=== PATIENT | male | born 1945 | race Caucasian/White ===

== ENCOUNTER 2022-12-09 06:04 | Day surgery (SDC) | payer OTHER ==
[2022-12-05 10:29] VITALS: BMI 25.8
[2022-12-09] MEDS ORDERED: ceFAZolin SODIUM 1 GM VIAL ONE ×2 (07:03→08:27)
[2022-12-09] MEDS ORDERED: VANCOMYCIN 1,000 MG VIAL (RESTRICTED TO ID ONLY) ONE (07:03)
[2022-12-09] MEDS ORDERED: ONDANSETRON 4 MG/2 ML VIAL ONE (07:08)
[2022-12-09] MEDS ORDERED: DEXAMETHASONE SOD PHOSPHATE 4 MG/1 ML VIAL ONE (07:08)
[2022-12-09] MEDS ORDERED: MIDAZOLAM HCL 2 MG/2 ML SINGLE DOSE VIAL ONE (07:08)
[2022-12-09] MEDS ORDERED: FENTANYL CITRATE/PF 50 MCG/ML VIAL ONE (07:09)
[2022-12-09] MEDS ORDERED: ROPIVACAINE HCL 0.5% 30ML VIAL ONE (07:09)
[2022-12-09] MEDS ORDERED: CEFAZOLIN 2 GM in DEXTROSE 5%-WATER - 50 ML IVPB ONE (08:00)
[2022-12-09] MEDS ORDERED: TRANEXAMIC ACID 1000 MG/10 ML VIAL IVPUSH ONE (09:00)
[2022-12-09] MEDS ORDERED: TRANEXAMIC ACID 1000 MG/10 ML VIAL ONE (09:33)
[2022-12-09] MEDS ORDERED: MAG HYDROX/AL HYDROX/SIMETH 30 ML UNIT-DOSE CUP PO PRN (09:41)
[2022-12-09] MEDS ORDERED: ONDANSETRON 4 MG/2 ML VIAL IVPUSH PRN (09:41)
[2022-12-09] MEDS ORDERED: LACTATED RINGERS SOLUTION 1,000 ML IV SCH (09:45)
[2022-12-09] MEDS ORDERED: FINASTERIDE 5 MG TABLET (FP) PO SCH (10:00)
[2022-12-09] MEDS ORDERED: ENZALUTAMIDE 40 MG PO SCH (10:00)
[2022-12-09] MEDS ORDERED: GALANTAMINE HBR 8 MG PO SCH (10:00)
[2022-12-09] MEDS ORDERED: oxyCODONE HCL 5 MG TABLET PO PRN (10:17)
[2022-12-09] MEDS ORDERED: ACETAMINOPHEN 1000 MG/100 ML BAG IVPB ONE (10:17)
[2022-12-09] MEDS ORDERED: ACETAMINOPHEN INJECTION 100 ML IVPB ONE (10:42)
[2022-12-09] MEDS: PANTOPRAZOLE 40 MG TABLET PO SCH (13:20)
[2022-12-09] MEDS: SENNOSIDES/DOCUSATE COMBO (SENNA PLUS) TABLET (UD) PO SCH ×2 (13:20→21:37)
[2022-12-09] MEDS: oxyCODONE HCL 5 MG TABLET PO PRN ×2 (15:53→21:39)
[2022-12-09] MEDS: CEFAZOLIN SODIUM 2 GM in DEXTROSE 5%-WATER 100 ML IVPB SCH ×2 (15:53→23:52)
[2022-12-09] MEDS: ACETAMINOPHEN 500 MG TABLET (FP) PO SCH ×2 (18:58→23:52)
[2022-12-09] MEDS: GALANTAMINE HBR 8 MG PO SCH (21:39)
[2022-12-09] MEDS ORDERED: TAMSULOSIN HCL 0.4 MG CAP PO SCH (22:00)
[2022-12-10 02:09] VITALS: RESP 18
[2022-12-10] MEDS: ACETAMINOPHEN 500 MG TABLET (FP) PO SCH ×2 (06:38→12:20)
[2022-12-10] MEDS ORDERED: ASPIRIN 325 MG TABLET PO SCH (08:00)
[2022-12-10 08:32] LABS: HEMOGLOBIN 11.8 G/dL (11.7-16.9); MCH 29.7 pg (25.7-33.7); MCHC 33.6 g/dl (32.0-35.9); MEAN CELL VOLUME 88.7 fl (80-96); MEAN PLT VOLUME 6.7 fl (7.5-11.1); PLATELET COUNT 223.1 10^3/uL (134-434); RBC 3.95 10^6/uL (4.00-5.60); RDW 13.5 % (11.9-15.9); WHITE BLOOD COUNT 9.4 10^3/uL (4.0-10.8)
[2022-12-10 09:07] VITALS: PULSE 82
[2022-12-10] MEDS ORDERED: LOSARTAN POTASSIUM 50 MG TABLET PO SCH (10:00)
[2022-12-10] MEDS ORDERED: FINASTERIDE 5 MG TABLET (FP) PO SCH (10:00)
[2022-12-10] MEDS ORDERED: ROSUVASTATIN CA 5 MG TABLET PO SCH (10:00)
[2022-12-10] MEDS ORDERED: MULTIVITAMINS (DAILY MVI) TABLET (FP) PO SCH (10:00)
[2022-12-10] MEDS ORDERED: HYDROCHLOROTHIAZIDE 25 MG TABLET (FP) PO SCH (10:00)
[2022-12-10] MEDS ORDERED: ENZALUTAMIDE 40 MG PO SCH (10:00)
[2022-12-10] MEDS: SENNOSIDES/DOCUSATE COMBO (SENNA PLUS) TABLET (UD) PO SCH (10:09)
[2022-12-10] MEDS: PANTOPRAZOLE 40 MG TABLET PO SCH (10:09)
[2022-12-10] MEDS: GALANTAMINE HBR 8 MG PO SCH (10:13)
[2022-12-10 12:36] VITALS: BP 130/76; TEMP 98
== END 2022-12-10 12:50 | disposition home health service (06) ==
LOC: FASUSAT 06:04 → FM/S 11:59 → FASUSAT 12-10 12:50
PROVIDERS: ATTEND Orthopaedic Surgery
PROC: 8E0Y0CZ Robotic Assisted Procedure of Lower Extremity, Open Approach (ICD-10-PCS; 2022-12-09)
PROC: 0RRJ0JZ Replacement of Right Shoulder Joint with Synthetic Substitute, Open Approach (ICD-10-PCS; principal; 2022-12-09 08:36)
DX: M16.11 Unilateral primary osteoarthritis, right hip (principal)
CPT/HCPCS: 20985; 27130; C1776; S2900; 36415; 73502-TC-RT-FY; 85027; 88305-TC; 88311-TC; 94760; 97010-GP; 97116-GP; 97161-GP; C1713